=== PATIENT | male | born 1985 | race Caucasian/White ===

== ENCOUNTER 2020-06-08 11:16 | Emergency (ER) | payer BC ==
[2020-06-08] MEDS ORDERED: DIPH/PERTUSS(ACELL)/TETANUS VAC/PF 0.5 ML SYR (>=10YO) IM ONE (12:50)
[2020-06-08] MEDS ORDERED: HYDROCODONE/ACETAMINOPHEN 5-325 MG TABLET PO ONE (12:50)
--- NOTE | 2020-06-08 12:52 | ER Document Report ---
ED Medical Screen (RME) - General Chief Complaint: Laceration Stated Complaint: LACERATION/LEFT INDEX FINGER Time Seen by Provider: 06/08/20 12:47 Notes: Patient got his left second finger caught in the gear and chain of a garage outdoor adventure guides. Patient with injury to distal tip of left second finger. Patient with arterial bleeding in triage. I have greeted and performed a rapid initial assessment of this patient. A comprehensive ED assessment and evaluation of the patient, analysis of test results and completion of the medical decision making process will be conducted by additional ED providers. - Related Data Allergies/Adverse Reactions: No Known Allergies Allergy (Unverified 06/08/20 12:42) Physical Exam - Vital signs Vitals: Temp Pulse Resp BP Pulse Ox 98.2 F 86 20 144/88 H 97 06/08/20 12:43 06/08/20 12:43 06/08/20 12:43 06/08/20 12:43 06/08/20 12:43 - Notes Notes: Arterial bleeding to distal left second fingertip, bleeding able to be controlled with pressure Course - Vital Signs Vital signs: Temp Pulse Resp BP Pulse Ox 98.2 F 86 20 144/88 H 97 06/08/20 12:43 06/08/20 12:43 06/08/20 12:43 06/08/20 12:43 06/08/20 12:43
--- NOTE | 2020-06-08 13:50 | RADIOLOGY REPORT (SQ) ---
EXAM DESCRIPTION: FINGER LEFT IMAGES COMPLETED DATE/TIME: 06/08/2020 1:17 pm REASON FOR STUDY: L 2nd finger injury COMPARISON: None. NUMBER OF VIEWS: Three views. TECHNIQUE: AP, lateral, and both oblique images acquired of the left second finger. LIMITATIONS: None. FINDINGS: MINERALIZATION: Normal. BONES: There is amputation of the tip of the terminal tuft of the 2nd distal phalanx. SOFT TISSUES: There is amputation of the soft tissues in the tip of the 2nd digit. OTHER: No other significant finding. IMPRESSION: Amputation the tip of the 2nd digit including a portion of the terminal tuft of the 2nd distal phalanx. TECHNICAL DOCUMENTATION: JOB ID: [id number] 2010 [employer]- All Rights Reserved Reading location - IP/workstation name: [email or web address]
[2020-06-08] MEDS ORDERED: CEFAZOLIN 1 GM/D5W RTU 1 GM/50 ML RTUPB IV ONE (14:47)
[2020-06-08] MEDS ORDERED: LIDOCAINE 1% INJ-PF (10 MG/ML) 30 ML SDV INJ ONE (15:45)
[2020-06-08] MEDS ORDERED: CEPHALEXIN 500 MG CAPSULE PO ONE (17:17)
[2020-06-08] MEDS ORDERED: HYDROCODONE/ACETAMINOPHEN 5-325 MG (6 TAB/ER DISP) PO PRN (17:18)
--- NOTE | 2020-06-08 17:36 | ER Document Report ---
ED General - General Chief Complaint: Laceration Stated Complaint: LACERATION/LEFT INDEX FINGER Time Seen by Provider: 06/08/20 12:47 - HPI Notes: Chief Complaint: Left index finger partial amputation Historian: History obtained from patient HPI: This is a 35-year-old male presents to the ER with a left index finger distal tip amputation about 1 hour prior to arrival. 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 unsure of tetanus status. denies possible FB. 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 ROS: Constitutional: no fevers. HEENT: no RENTERIA, sore throat, or vision changes. CV: no chest pain or palpitations. Resp: no cough or SOB. GI: no abdominal pain, or n/v/d. : no dysuria, hematuria, or incont. MSK: left index finger tip amputation Skin: no rashes or itching. Neuro: no seizures, weakness, numbness, or confusion. Hematological: no ecchymosis or easy bleeding. Endocrine: no polyuria/polydipsia, no heat/cold intolerance. Psych: no SI/HI, AH/VH or memory loss. PMHx: Reviewed and agree as charted by RN. PSHx: Reviewed and agree as charted by RN. SOCHx: Reviewed and agree as charted by RN. FHX: No significant familial comorbid conditions directly related to patient complaint Current Medications: Reviewed and agree with the patient medications as charted by the RN. Allergies: Reviewed and agree with the listed allergies as charted by the RN Physical Exam: Vitals: Reviewed in chart as documented by RN. General: Alert and in NAD. Head: Normocephalic; atraumatic Eyes: PERRLA, Conjunctivae clear sclerae non-icteric bilat ENT: no soft palate swelling or uvular deviation Neck: trachea midline, no unilateral swelling/tenderness/lymphadenopathy CV: RRR, no M/R/G; symmetric distal pulses Resp: respirations even and unlabored, CTA bilat. GI: abd soft and nondistended. NTTP. normal BS. no masses/HSM. no CVAT bilat MSK: LUE- index finger-oblique amputation of the distal half of the distal phalanx. Only the proximal quarter of the nail remains. skin avulsed and amputated on volar side of distal phalanx just past the DIP. moderate bleeding w/ some arterial bleeding. no gross fb noted. distal phalanx fragments protruding just above wound bed. FROM of dip, pip, mcp. able to flex dip. sensation intact diffusely radial pulse 2+ Skin: warm, moist, good turgor. no rash/lesions Neuro: Alert and oriented X 4. following CN 2-12 intact. no unilateral weakness/numbness Psych: No SI/HI or AH/VH. Medical Decision-Making: Medical Decision-making/Differential Diagnosis: Consider various etiologies including but not limited to amputation, skin/soft tissue structure injury, MSK injury, strain/sprain, fracture, dislocation, bursitis, tendonitis, contusion, ect Plan- wound irrigation. XR, finger, tetanus, po keflex. pain control. triage provider consulted orthopedics- Dr Guerra- who recommended the bone be rongeured and tissue sutured closed over the bone w/ nylon sutures. Skin was avulsed and amputed proximal to amputation, not enough availble to attempt a flap cover from an ER standpoint. I also discussed case w/ Dr Maciel and Dr Juarez. Bone was rongeured and subuct tissue was approximated together over the distal phalanx. pt tolerated well. nonstick bulky dressing placed. will d/c w/ keflex, pain control, home wound care instructions, and orthopedics referral for f/u. return factors discussed. This course of action was discussed with the patient and/or family. They were amenable to this, verbalized understanding, and were without further questions. - Related Data Allergies/Adverse Reactions: No Known Allergies Allergy (Unverified 06/08/20 12:42) Past Medical History - Social History Smoking Status: Unknown if Ever Smoked Family History: None Physical Exam - Vital signs Vitals: Temp Pulse Resp BP Pulse Ox 98.2 F 86 20 144/88 H 97 06/08/20 12:43 06/08/20 12:43 06/08/20 12:43 06/08/20 12:43 06/08/20 12:43 Course - Vital Signs Vital signs: Temp Pulse Resp BP Pulse Ox 98.2 F 86 20 144/88 H 97 06/08/20 12:43 06/08/20 12:43 06/08/20 12:43 06/08/20 12:43 06/08/20 12:43 - Laboratory Results Critical Laboratory Results Reviewed: No Critical Results - Radiology Results Critical Radiology Results Reviewed: Yes - Dr velazquez aware of open fracture of distal phalanx of left index Attending or Supervising Physician who Reviewed Radiology: DIANA MACIEL Procedures - Laceration/Wound Repair Left Distal Finger 2nd digit Time completed: 17:20 Wound length (cm): 2 Wound's Depth, Shape: Irregular, Other - distal finger tip amputation through nail and distal phalanx. Laceration pre-procedure: Sterile PPE donned, Chloraprep applied, Other Anesthetic type: 1% Lidocaine Volume Anesthetic (mLs): 3 Wound explored: No foreign body removed, Contaminated - open fracture Irrigated w/ Saline (mLs): 1,000 Wound Debrided: Extensive - rongeured bone and debrided avulsed tissue Wound Repaired With: Sutures Suture Size/Type: 5:0, Ethilon Number of Sutures: 4 Post-procedure wound care: Other - nonstick bulky dressing Post-procedure NV exam normal: Yes Complications: No Discharge - Discharge Clinical Impression: Traumatic amputation of tip of finger of left hand Fracture of finger, distal phalanx, left, open Qualifiers: Encounter type: initial encounter Finger: index finger Fracture alignment: nondisplaced Qualified Code(s): S62.661B - Nondisplaced fracture of distal phalanx of left index finger, initial encounter for open fracture Disposition: HOME, SELF-CARE Instructions: Open Finger Tuft Fracture ([facility]) Additional Instructions: keep wound clean and dry.leave dressing on for next 24-48 hours. follow printed instructions on home care. call orthopedics to set up an appointment for as soon as possible. no driving on pain medications. return to the ER if your condition worsens. Prescriptions: Cephalexin Monohydrate [Keflex 500 mg Capsule] 500 mg PO Q6H 5 Days #20 capsule Referrals: KRYSTINA STEEN DO [ACTIVE STAFF] - Follow up as needed COURTNEY SHINE MD [NO LOCAL MD] - Follow up as needed
[2020-06-08 18:14] VITALS: BP 138/82
== END 2020-06-08 18:12 | disposition home or self-care (01) ==
LOC: ER 11:16
DX: S68.621A Partial traumatic transphalangeal amputation of left index finger, initial encounter (principal); W23.0XXA Caught, crushed, jammed, or pinched between moving objects, initial encounter; Y93.89 Activity, other specified; Y99.0 Civilian activity done for income or pay
CPT/HCPCS: 99284